=== PATIENT | female | born 1995 | race Caucasian/White ===

== ENCOUNTER 2021-03-08 00:31 | Emergency (ER) | payer OTHER, MEDICAID ==
[~2021-03-08] VITALS: Ht 152.4 cm; Wt 52.2 kg
[2021-03-08 00:35] VITALS: BP_SYST 129
--- NOTE | 2021-03-08 00:35 | NUR ---
Patient triaged and placed in waiting room. VSS and patient appears in no acute distress at this time. Accompanied by MOTHER, awaiting available bed, and MD notified of need for MSE.
--- NOTE | 2021-03-08 00:58 | NUR ---
Patient to ER bed 1 to gown for evaluation. Side rails up.
--- NOTE | 2021-03-08 01:02 | NUR ---
ER at bedside examining patient.
--- NOTE | 2021-03-08 01:21 | NUR ---
Urine HCG done, results NEGATIVE.
[2021-03-08] MEDS ORDERED: IBUPROFEN 800 MG TABLET PO ONE (01:30)
--- NOTE | 2021-03-08 01:42 | NUR ---
PT TAKEN TO RADIOLOGY AWKE VIA WHEELCHAIR.
[2021-03-08] MEDS ORDERED: IBUP-1970 PO (02:47)
[2021-03-08] MEDS ORDERED: CYCL-10 PO (02:47)
--- NOTE | 2021-03-08 02:54 | NUR ---
Patient given written and verbal discharge instructions and verbalizes understanding. ER MD discussed with patient the results and treatment provided. Patient in stable condition. ID arm band removed. Rx of flexeril given. Patient educated on pain management and to follow up with PMD. Pain Scale 4/10. Opportunity for questions provided and answered. Medication side effect fact sheet provided.
[2021-03-08 02:55] VITALS: BP_SYST 123
== END 2021-03-08 02:55 | disposition home or self-care (01) ==
LOC: SED 00:31
DX: M54.5 Low back pain (principal); Z79.899 Other long term (current) drug therapy; V49.49XA Driver injured in collision with other motor vehicles in traffic accident, initial encounter; Y93.89 Activity, other specified; Y92.89 Other specified places as the place of occurrence of the external cause; Y99.8 Other external cause status
CPT/HCPCS: 72110; 81025; 99283